=== PATIENT | female | born 1995 | race Hispanic/Latino ===

== ENCOUNTER 2018-03-14 17:27 | Emergency (ER) | payer SELFPAY ==
[2018-03-14 17:39] VITALS: RESP 16; O2SAT 97
[2018-03-14] MEDS ORDERED: Sodium Chloride 0.9% 1,000 ML IV ONE (17:43)
--- NOTE | 2018-03-14 17:51 | C.PDOC ---
History Of Present Illness 23 year old female with no pertinent medical history LAURA presents to the ED complaining of dizziness and generalized weakness. Patient states she is visiting from [place] and leaves tomorrow. [place] the [place] suddenly she started feeling weak, dizzy and nauseous. She notes she was taking Iron supplements because her hemoglobin was low but she stopped taking them yesterday because they were making her stomach upset. She denies any fever , chills, vomiting, diarrhea, or abdominal pain. LNMP: a week ago Time Seen by Provider: 03/14/18 17:33 Chief Complaint (Nursing): Abdominal Pain History Per: Patient History/Exam Limitations: no limitations Onset/Duration Of Symptoms: Hrs Current Symptoms Are (Timing): Still Present Associated Symptoms: Nausea. denies: Fever, Chills, Vomiting, Diarrhea Past Medical History Reviewed: Historical Data, Nursing Documentation, Vital Signs Vital Signs: Last Vital Signs Temp 98.7 F 03/14/18 17:46 Pulse 79 03/14/18 17:46 Resp 16 03/14/18 17:46 BP 131/85 03/14/18 17:46 Pulse Ox 97 03/14/18 18:40 - Medical History PMH: No Chronic Diseases Surgical History: No Surg Hx Family History: States: No Known Family Hx Review Of Systems Except As Marked, All Systems Reviewed And Found Negative. Constitutional: Positive for: Weakness. Negative for: Fever, Chills Gastrointestinal: Positive for: Nausea. Negative for: Vomiting, Abdominal Pain , Diarrhea Neurological: Positive for: Dizziness Physical Exam - Physical Exam Appears: Non-toxic, No Acute Distress Skin: Warm, Dry Head: Atraumatic, Normacephalic Eye(s): bilateral: Normal Inspection Nose: Normal Oral Mucosa: Moist Neck: Supple Chest: Symmetrical Cardiovascular: Rhythm Regular Respiratory: Normal Breath Sounds, No Rales, No Rhonchi, No Wheezing Gastrointestinal/Abdominal: Soft, No Tenderness Extremity: Bilateral: Atraumatic, Normal Color And Temperature, Normal ROM Neurological/Psych: Oriented x3, Normal Speech Gait: Steady ED Course And Treatment - Laboratory Results Result Diagrams: 03/14/18 18:13 03/14/18 18:13 Lab Interpretation: Normal Urine POC: Negative ECG: Interpreted By Me ECG Rhythm: Sinus Rhythm Rate From EC O2 Sat by Pulse Oximetry: 97 (RA) Pulse Ox Interpretation: Normal Progress Note: Treated with IVF NSS and reglan. On re-evaluation feeling better , neuro intact Reassessment Condition: Improved Medical Decision Making Medical Decision Making: Impression: Generalized weakness Orders: - EKG - Lab work - Reglan 10mg IVP -IV fluids - UA Disposition Counseled Patient/Family Regarding: Diagnosis - Disposition Disposition: HOME/ ROUTINE Disposition Time: 18:30 Condition: IMPROVED Additional Instructions: Follow up with your PMD for further evaluation Drink lots of fluids Instructions: Near Fainting Forms: [employer] (Azeri), Gen Discharge Inst Slovak - POA Present On Arrival: None - Clinical Impression Clinical Impression: Vasovagal near syncope - PA / WATER TREATMENT TECHNICIAN / Resident Statement MD/DO has reviewed & agrees with the documentation as recorded. - Scribe Statement The provider has reviewed the documentation as recorded by the Scribe Kelli Baumann All medical record entries made by the Paulaibguera were at my direction and personally dictated by me. I have reviewed the chart and agree that the record accurately reflects my personal performance of the history, physical exam, medical decision making, and the department course for this patient. I have also personally directed, reviewed, and agree with the discharge instructions and disposition.
[2018-03-14 18:03] VITALS: BP 131/85; PULSE 79; TEMP 98.7; BMI 22.4
[2018-03-14 18:18] LABS: BASO # 0.1 K/uL (0.0-0.2); BASO % 0.7 % (0.0-2.0); EOS % 0.5 % (0.0-4.0); HEMOGLOBIN 14.9 g/dL (11.0-16.0); LYMPH # 1.1 K/uL (1.0-4.3); LYMPH % 13.6 % (20.0-40.0); MEAN CELL VOLUME 91.4 fL (81.0-99.0); MEAN PLATELET VOLUME 8.3 fL (7.2-11.7); MONO # 0.7 K/uL (0.0-0.8); NEUT # 6.5 K/uL (1.8-7.0); NEUT % 77.2 % (50.0-75.0); NRBC % 0.1 % (0.0-2.0); RBC 4.65 Mil/uL (3.80-5.20); RED CELL DISTRIBUTION WIDTH 12.3 % (11.5-14.5); WHITE BLOOD COUNT 8.4 K/uL (4.8-10.8)
[2018-03-14] MEDS ORDERED: Sodium Chloride 0.9% 1,000 ML ONE (18:21)
[2018-03-14 18:28] LABS: BLOOD UREA NITROGEN 11 mg/dL (7-17); CALCIUM 9.9 mg/dl (8.6-10.4); GFR AFRICAN-AMERICAN > 60; GFR NON-AFRICAN AMERICAN > 60
[2018-03-14 18:33] LABS: HCG,QUALITATIVE URINE NEGATIVE (NEGATIVE)
[2018-03-14 18:40] LABS: SQUAMOUS EPITHIAL < 1 /hpf (0-5); URINE BACTERIA RARE (<OCC); URINE BILIRUBIN NEGATIVE (NEGATIVE); URINE BLOOD NEGATIVE (NEGATIVE); URINE CLARITY Clear (Clear); URINE COLOR Straw (YELLOW); URINE GLUCOSE (UA) NORMAL (Normal); URINE LEUKOCYTE ESTERASE NEG Leu/uL (Negative); URINE PROTEIN NEGATIVE (NEGATIVE); URINE UROBILINOGEN NORMAL mg/dL (0.2-1.0)
== END 2018-03-14 18:56 | disposition home or self-care (01) ==
LOC: C.ER 17:27 → EDBD 17:27 → C.ER 18:56
DX: R55 Syncope and collapse (principal)
CPT/HCPCS: 80048; 81001; 84703; 85025; 93005; 96361; 96365; 99284; J2765; J7030